=== PATIENT | male | born 1970 | race Two or more races ===

== ENCOUNTER 2016-11-20 00:17 | Emergency (ER) | payer MEDICAID ==
[2016-11-20] MEDS ORDERED: IOPAMIDOL 370 (76%) 100 ML VIAL IV ONE (00:18)
[2016-11-20] MEDS ORDERED: HYDROCODONE/ACETAMINOPHEN 5/325MG TABLET ONE (01:16)
[2016-11-20 02:00] LABS: ABSOLUTE NEUTROPHIL COUNT 10.9 K/mm3 (1.8-7.7); BASO # 0.1 K/mm3 (0.0-0.2); BASO % 0.7 % (0.2-1.0); EOS % 0.2 % (0.9-2.9); HEMATOCRIT 46.2 % (32.0-52.0); HEMOGLOBIN 14.5 gm/l (14.0-18.0); IMM NEUT # 0.1 K/mm3 (0-0.2); IMM NEUT% 0.4 % (0-1); LYMPH # 1.3 (1.0-4.8); LYMPH % 9.2 % (15-45); MEAN CELL VOLUME 79.9 fl (80.0-94.0); MEAN CORPUSCULAR HEMOGLOBIN 25.1 pg (27.0-31.0); MEAN CORPUSCULAR HGB CONC 31.4 g/dl (33.0-37.0); MEAN PLATELET VOLUME 10.1 fl (7.4-10.4); MONO # 1.6 (0.0-0.8); MONO % 11.2 % (4-12); NEUT % 78.3 % (43-75); PLATELET COUNT 339 K/mm3 (130-400); RED CELL DISTRIBUTION WIDTH 18.9 % (11.5-14.5)
[2016-11-20 02:09] LABS: ALB/GLOB RATIO 1.1 (>1.0); ALBUMIN 3.7 gm/dL (3.5-5.7); CALCIUM 9.6 mg/dL (8.6-10.3)
[2016-11-20] MEDS ORDERED: FUROSEMIDE 40 MG/4 ML VIAL ONE (03:37)
[2016-11-20 04:19] LABS: TROPONIN I 0.04 ng/ml (0.0-0.06)
[2016-11-20 04:23] LABS: CKMB ISOENZYME 5.2 ng/ml (0.6-6.3)
--- NOTE | 2016-11-20 07:01 | RAD ---
EXAMINATION:CHEST - 2 VIEWS CLINICAL INDICATION:Edema. COMPARISON: 09/28/2016 FINDINGS: Borderline cardiomegaly is again noted. Aortic ectasia is similar to the prior exam. There is no adenopathy identified. There is no pleural effusion. The lungs are clear. The osseous structures are unremarkable for age. Pacemaker/implantable device is again noted. IMPRESSION: Stable senescent changes of thorax with no acute process identified.
--- NOTE | 2016-11-20 07:08 | CT ---
EXAMINATION: CT angiography of the thorax.CTA CHEST FOR PE INDICATION: Edema. Currently breathing. COMPARISON: None. TECHNIQUE: Helical scan mode CT of the Thorax after uneventful intravenous contrast administration of 80 ml of Isovue-370. Imaging device: [employer] multidetector CT scan. Helically acquired stacked images were reviewed in the axial, sagittal and coronal planes. Additional 3-D postprocessing was performed and reconstructed images were acquired at the [employer]D [employer] workstation and reviewed as well. FINDINGS: The bolus is of fair quality for diagnosis of pulmonary embolism. Motion artifact also diminishes resolution. There are no pulmonary arterial filling defects. No vascular malformations are identified. The thoracic aorta exhibits no gross aneurysmal dilatation. The lung parenchyma: There is basilar atelectasis. No gross mass or consolidation is identified. Pleural effusion: None: Mediastinum: There is no axillary, mediastinal or hilar adenopathy. The heart and great vessels opacify normally. Pulmonary artery is generous in size. It measures possibly 3.7 cm in diameter. Cardiomegaly is also noted. Osseus structures: No gross lytic or blastic lesions. Soft tissues: within normal limits Limited evaluation of the abdomen on this arterial phase injection reveals: no gross abnormalities. IMPRESSION: 1. Negative for pulmonary embolism. Please note limitations of the study as above. 2. Prominent pulmonary artery raising the question of pulmonary arterial hypertension. 3. Cardiomegaly. Currently there are no changes suggestive of CHF. 4. Mild bibasilar atelectasis. Findings were communicated by [facility] to the emergency department at: 3:22 AM 11/20/2016
== END 2016-11-20 05:55 | disposition home or self-care (01) ==
LOC: ED 00:17
DX: M10.9 Gout, unspecified (principal); R22.43 Localized swelling, mass and lump, lower limb, bilateral; I50.9 Heart failure, unspecified; E11.9 Type 2 diabetes mellitus without complications; I10 Essential (primary) hypertension
CPT/HCPCS: 83880; 85379; 85025; 82553; 80053; 84484 ×2; 71020; 71275; 99285; 96374; 93005; 99283; J1940; Q9967; A9270